=== PATIENT | male | born 1950 | race Caucasian/White ===

== ENCOUNTER 2025-07-12 17:10 | Emergency (ER) | payer OTHER ==
[~2025-07-12] VITALS: Ht 182.9 cm; Wt 84.0 kg
[~2025-07-12 17:10] MED LIST: ASPI-1198 PO; ESCI-8 PO; HYDR25TA PO; METF-445 PO; METO-408 PO; QUET200T PO; SIMV-46 PO
[2025-07-12 17:59] VITALS: TEMP 99
[2025-07-12] MEDS ORDERED: LEVE500S33 PO (18:11)
[2025-07-12] MEDS ORDERED: LACO100T14 PO (18:11)
[2025-07-12] MEDS ORDERED: TRAM50TA5 PO (18:11)
[2025-07-12] MEDS ORDERED: SIMV-261 PO (18:11)
[2025-07-12] MEDS ORDERED: METF-1211 PO (18:11)
[2025-07-12] MEDS ORDERED: MELA5TAB40 PO (18:11)
[2025-07-12] MEDS ORDERED: CHOL25TA4 PO (18:11)
[2025-07-12] MEDS ORDERED: MAGN400T57 PO (18:11)
[2025-07-12] MEDS ORDERED: DIVA125C20 PO (18:11)
[2025-07-12] MEDS ORDERED: LISI-894 PO (18:11)
[2025-07-12] MEDS ORDERED: FAMO20 PO (18:11)
[2025-07-12] MEDS ORDERED: HYDR-5256 PO (18:11)
[2025-07-12 19:42] LABS: APPEARANCE,URINE HAZY (CLEAR); GLUCOSE, URINE (UA) NEGATIVE (NEGATIVE); LEUKOCYTE ESTERASE ,URINE LARGE (NEGATIVE); NITRATE,URINE POSITIVE (NEGATIVE); OCCULT BLOOD,URINE NEGATIVE (NEGATIVE); PH,URINE DRUG SCREEN 7.0 (5.0-8.0); SPECIFIC GRAVITIY, URINE 1.029 (1.003-1.030)
[2025-07-12 19:46] LABS: ALCOHOL, URINE DRUG SCREEN NEGATIVE (NEGATIVE); AMPHET/METH SCREEN,URINE NEGATIVE (NEGATIVE); BARBITURATE SCREEN, URINE NEGATIVE (NEGATIVE); CANNABINOID SCREEN,URINE NEGATIVE (NEGATIVE); COCAINE SCREEN,URINE NEGATIVE (NEGATIVE); METHADONE SCREEN, URINE NEGATIVE (NEGATIVE)
[2025-07-12 19:47] LABS: COVID AG,FIA SOURCE NASAL SWAB
[2025-07-12 19:53] LABS: PLATELET COUNT (AUTO) 203 K/uL (150-450); RED BLOOD CELL COUNT(AUTO) 3.88 MIL/uL (4.50-5.90); RED CELL DISTRIBUTION WIDTH 14.0 % (11.5-14.5); WHITE BLOOD COUNT (AUTO) 6.8 K/uL (4.5-11.0)
[2025-07-12 19:55] LABS: CALCIUM, TOTAL 8.7 mg/dL (8.8-10.5); CREATININE 1.00 mg/dL (0.60-1.30); GLOMERULAR FILTR. RATE CALC > 60 mL/min (>60); GLUCOSE,RANDOM 117 mg/dL (70-110); SODIUM SERUM 139 mmol/L (136-145); UREA NITROGEN, BLOOD 22 mg/dL (7-18)
[2025-07-12 20:17] LABS: SARS-COV2 (COVID) ANTIGEN,FIA Negative (Negative)
[2025-07-12 20:24] LABS: SQUAMOUS EPITHELIAL CELL,UR Few /LPF (None Seen)
[2025-07-12] MEDS: SODIUM CHLORIDE 0.9% 1,000 ML IV ONE (22:21)
[2025-07-12] MEDS: CefTRIAXone 1 GM/DEXTROSE 50 ML IV ONE (22:22)
[2025-07-12 22:33] VITALS: BP 123/56; PULSE 83; RESP 16; O2SAT 99
== END 2025-07-12 22:52 | disposition short-term general hospital (02) ==
LOC: EMS 17:10
DX: N39.0 Urinary tract infection, site not specified (principal); F03.911 Unspecified dementia, unspecified severity, with agitation; E11.9 Type 2 diabetes mellitus without complications; E78.00 Pure hypercholesterolemia, unspecified; F32.A Depression, unspecified; I10 Essential (primary) hypertension; K21.9 Gastro-esophageal reflux disease without esophagitis; Z79.899 Other long term (current) drug therapy; Z20.822 Contact with and (suspected) exposure to COVID-19
CPT/HCPCS: 99285; 96360; 87426; 80048; 81001; 82962; 85025; 87040; 87077; 87086; 36415; 80307; G0480; J0696; J7030; 87186